=== PATIENT | female | born 1980 | race Caucasian/White ===

== ENCOUNTER 2023-08-23 10:03 | Outpatient (OUT) | payer OTHER, SELFPAY ==
[2023-08-23 10:15] LABS: Basophils Absolute Auto 0.1 10^3/uL (0.0-0.1); Basophils Percent Auto 1.9 % (0.2-2.0); Eosinophils Absolute Auto 0.2 10^3/uL (0.0-0.7); Hematocrit 33.6 % (36.0-48.0); Immature Granulocytes Abs Auto 0.01 10^3/uL (0.00-0.03); Immature Granulocytes Pct Auto 0.1 % (0.0-0.5); Lymphocytes Absolute Auto 3.5 10^3/uL (1.2-3.8); Lymphocytes Percent Auto 49.8 % (20.5-60.0); Mean Corpuscular HGB Conc 29.8 g/dL (29.9-35.2); Mean Corpuscular Hemoglobin 20.4 pg (26.7-34.0); Mean Corpuscular Volume 68.6 fL (81.0-99.0); Mean Platelet Volume 9.3 fL (9.5-13.5); Monocytes Absolute Auto 0.6 10^3/uL (0.3-0.8); Monocytes Percent Auto 8.3 % (1.7-12.0); Neutrophils Absolute Auto 2.6 10^3/uL (1.4-6.5); Neutrophils Percent Auto 36.9 % (43.0-75.0); Platelet Count 372 10^3/uL (150-450); Red Cell Distribution Width 19.3 % (11.0-15.0)
[2023-08-23 11:27] LABS: Estimated Average Glucose 108 mg/dL; Glycohemoglobin A1C 5.4 % (4.5-6.2)
[2023-08-23 11:53] LABS: Alanine Aminotransferase 23 U/L (14-59); Albumin Globulin Ratio 0.9; Albumin Level 3.4 g/dL (3.4-5.0); Alkaline Phosphatase 78 U/L (46-116); Anion Gap 10.5; Aspartate Amino Transferase 20 U/L (15-37); BUN Creatinine Ratio 15.8; Bilirubin Total 0.3 mg/dL (0.2-1.0); Carbon Dioxide 28.8 mmol/L (21.0-32.0); Chloride 103 mmol/L (98-107); Chol HDL Ratio 2.7; Cholesterol 176 mg/dL (<=200); Estimated GFR (African America >60 (>=60); Estimated GFR (Non-African Ame >60 (>=60); Free T3 2.27 pg/mL (2.18-3.98); Globulin 3.9 g/dL; Glucose 75 mg/dL (74-106); HDL Cholesterol 65 mg/dL (40-60); Potassium 3.3 mmol/L (3.5-5.1); Sodium 139 mmol/L (136-145); Thyroid Stimulating Hormone 3.593 uIU/mL (0.358-3.740); Total Protein 7.3 g/dL (6.4-8.2); Triglycerides 51 mg/dL (<=150); VLDL CHOLESTEROL 10.2 mg/dL
[2023-08-24 15:09] LABS: Insulin 2.7 uIU/mL (2.6-24.9)
== END 2023-08-23 10:04 | disposition home or self-care (01) ==
LOC: LAB 10:03
PROVIDERS: PCP Nurse Practitioner Family; Visit Provider Nurse Practitioner Family
DX: Z00.00 Encounter for general adult medical examination without abnormal findings (principal)
CPT/HCPCS: 36415; 80053; 80061; 82306; 83036; 83525; 83540; 84436; 84443; 84481; 85025

== ENCOUNTER 2025-07-31 13:55 | Outpatient (RCR) | payer OTHER, SELFPAY ==
--- OUTSIDE RECORDS SUMMARY | 2015-05-04 03:45 | XMS_ITS | Continuity of Care Document ---
Author Organization [facility] Address [address] [facility] [address] [place] [address] Phone Care Team Providers Care Agricultural Service Worker Name Role Phone Hesham Grossman MD Unavailable Unavailable Procedures Procedure Date LAP GASTRIC BYPASS/DARRIAN-EN-Y LAPAROSCOPIC CHOLECYSTECTOMY Gastric Bypass Laparoscopic Cholecystectomy OFFICE/OUTPATIENT VISIT, [facility] OFFICE CONSULTATION Advance Directives Directive Yes / No Effective Date File Name No Information Encounters Encounter Description Practice Location Reason(s) For Visit Diagnoses Date Provider Providers Copied on Encounter [facility] [employer] [facility], [address] [place] [address], [place], [place], [id number], [place] tel:[phone] [facility] IP No Information 5 Ngoc Dahl. [address] [place] [address], [id number], [place]. tel:[phone] Referring Provider: Hesham Eli, [address] [place] [address] 222, [place], [address] . tel:[phone] [facility], [address] [place] [address] B, [place], [place], [id number], [place] tel:[phone] [facility] IP No Information 5 No Information OFFICE/OUTPATI ENT VISIT, EST [employer] [employer] [facility], [address] [place] [address] B, [place], [place], [id number], [place] tel:[phone] [facility] No Information 5 Ngoc Dahl. [address] [facility] [address], [place], [place], [id number], [place]. tel:[phone] Referring Provider: Hesham Eli, [address] [place] [address], [place], [address] . tel:[phone] OFFICE CONSULTATION [facility], [address] [place] [address] [address], [place], [place], [id number], tel:[phone] [facility] No Information 4 Ngoc Dahl. [address] [facility] [address], [place], [place], [id number], [place]. tel:[phone] Referring Provider: Hesham Eli, [address] [place] [address], [place], [address] . tel:[phone] Family History Family Member Type Diagnosis Age At Onset No Information Payers Payer name Insurance type Covered democrat ID Steffen randle(s) Lonnie CI [id number] [place] [employer] CI [id number] Social History Type Description Quantity Date Captured Comments Sex Female Smoking Status No Information Chief Complaint And Reason For Visit No Information Reason For Referral Reason For Referral No Information History Of Present Illness Encounter Date Complaint History Of Prese nt Illness No Information Functional Status Date Functional Assessmen t No Information Instructions Date Instruction Additional Infor mation No Information Assessments Type Assessment Date No Information Patient Care Teams Name Effective Dates (start - stop) Status Members No Information
[2025-07-30] VITALS (11 sets, daily range): BP systolic 105–145; BP diastolic 53–82; PULSE 60–83; TEMP 36.6–36.9; O2SAT 97–100
--- OUTSIDE RECORDS SUMMARY | 2025-07-30 09:33 | XMS_ITS | Clinical Summary ---
Author Organization [facility] Address [address] [facility], [address] [place] [address] Care Team Providers Care Computer Lab Para Professional Name Role Phone Unavailable Primary Care Provider Unavailabl e Allergies No known active allergies Medications ondansetron (ZOFRAN) 4 MG tablet Take 1 tablet by mouth every 8 hours as needed for Nausea 10 tablet 03/19/2021 Active Social History Tobacco Use Types Packs/Day Years Used Date Smoking Tobacco: Every Day Cigarettes Smokeless Tobacco: Never Alcohol Use Standard Drinks/Week Comments Yes 0 (1 standard drink = 0.6 oz pur e alcohol) socially Comments No Sex and Gender Information Value Date Recorded Sex Assigned at Not on file Legal Sex Female 5:02 PM EST Gender Identity Not on file Sexual Orientation Not on file Last Filed Vital Signs Vital Sign Reading Time Taken Comments Blood Pressure 134/86 03/19/2021 7:08 PM EDT Pulse 95 03/19/2021 7:08 PM EDT Temperature 38.9 C (102 F) 03/19/2021 7:08 PM EDT Respiratory Rate 18 03/19/2021 7:08 PM EDT Oxygen Saturation 98% 03/19/2021 7:08 PM EDT Inhaled Oxygen Concentration - - Weight 56.7 kg (125 lb) 03/19/2021 7:08 PM EDT Height 165.1 cm (5' 5 ) 03/19/2021 7:08 PM EDT Body Mass Index 20.8 03/19/2021 7:08 PM EDT Plan of Treatment Not on file Insurance [place]
--- OUTSIDE RECORDS SUMMARY | 2025-07-30 09:33 | XMS_ITS | Clinical Summary ---
Author Organization [facility] Address [facility] [id number] [address] [place] [address] Care Team Providers Care Fur Finisher Tailor Name Role Phone Giuseppe Sarah Beth Jo CHIEF NURSING OFFICER-MAJOR GIFTS MANAGER Primary Care Provider Allergies No known active allergies Medications lisdexamfetamin e (VYVANSE) 70 mg capsule Take 20 mg by mouth in the morning and at bedtime. Active levothyroxine sodium (LEVOTHYROXINE ORAL) Take 25 mcg by mouth. Active cyanocobalamin (VITAMIN B-12) 1,000 mcg/mL injection Inject 1 mL (1,000 mcg total) into the appropriate muscle every 30 (thirty) days. 1 mL 0 Active potassium chloride (KLOR-CON M 10) 10 MEQ CR tabletIndicatio ns:Hypokalemia TAKE 3 TABLETS(30 MEQ) BY MOUTH DAILY 90 tablet 1 2 Active Additional Information Patient not taking.Reported on 03/15/2023 Active Problems Problem Noted Date Diagnosed Date Syncope 03/03/2023 Kidney stone 11/21/2020 Hypokalemia 10/02/2020 Iron deficiency anemia 10/01/2020 H/O gastric bypass 10/01/2020 B12 deficiency 10/01/2020 Pyelonephritis 09/26/2020 Social History Tobacco Use Types Packs/Day Years Used Date Smoking Tobacco: Every Day Cigarettes 0.5 20 Smokeless Tobacco: Former Tobacco Cessation:Ready to Q uit: No; Counseling Given: No Comments: Monika tried Alcohol Use Standard Drinks/Week Comments Not Currently 0 (1 standard drink = 0.6 oz pure alcohol) occasional, less than once monthly Childcare Answer Date Recorded Childcare Unknown 04/30/2019 Employment Answer Date Recorded Employment Unknown 04/30/2019 Hunger Screening Answer Date Recorded Within the past 12 months we worried whether our food would run out before we got money to buy more. Never True 03/15/2023 Within the past 12 months th e food we bought just didn't last and we didn't have money to get more. Never True 03/15/2023 Purpose - Life Answer Date Recorded Purpose and direction in life Unknown Comments No Sex and Gender Information Value Date Recorded Sex Assigned at Not on file Legal Sex Female 11:27 AM EDT Gender Identity Not on file Sexual Orientation Not on file Last Filed Vital Signs Vital Sign Reading Time Taken Comments Blood Pressure 116/63 03/15/2023 11:06 AM EDT Pulse 69 03/15/2023 11:06 AM EDT Temperature 36.8 C (98.3 F) 03/15/2023 11:06 AM EDT Respiratory Rate 16 03/15/2023 11:06 AM EDT Oxygen Saturation 100% 03/15/2023 11:06 AM EDT Inhaled Oxygen Concentration - - Weight 62.1 kg (137 lb) 03/15/2023 8:46 AM EDT Height 165.1 cm (5' 5 ) 03/15/2023 8:46 AM EDT Body Mass Index 22.8 03/15/2023 8:46 AM EDT Plan of Treatment Health Maintenance Due Date Last Done Comments Depression Screening 1990 Tobacco Screening 1990 Pap Smear 1999 DTaP,Tdap and Td Vaccines (2 - Td or Tdap) 07/07/2021 07/07/2011 Adult BMI Screening 03/15/2024 03/15/2023 Influenza Vaccine 07/20/2025 Medical Devices Not on file Insurance MEDICAID [facility] MEDICAID Advance Directives * Full Code (Latest Code Status on File) Date Activated Date Inactivated Comments 03/03/2023 6:36 PM 03/04/2023 1:53 AM * Full Code Date Activated Date Inactivated Comments 09/26/2020 8:58 PM 09/29/2020 5:00 PM Care Teams Fur Finisher Tailor Relationship Specialty Start Date End Date Sarah Beth Chin, CHIEF NURSING OFFICER-MAJOR GIFTS MANAGER [address] [place] [address] PCP - General Family Medicine 08/30/21
--- OUTSIDE RECORDS SUMMARY | 2025-07-30 09:33 | XMS_ITS | Encounter Summary ---
Author Organization [facility] Address [facility] [id number] [address] [place] [address] Care Team Providers Care Water Pollution Scientist Name Role Phone Giuseppe Sarah Beth Jo CARGO TRIMMER-HAND TWISTER Primary Care Provider Encounter Details Date Type Department Care Team (Late st Contact Info) Description 08/28/2023 Telephone [facility] - Medical On[facility] [address] [place] [address] Brittani Chirinos Social History Tobacco Use Types Packs/Day Years Used Date Smoking Tobacco: Every Day Cigarettes 0.5 20 Smokeless Tobacco: Former Comments: Monika tried Alcohol Use Standard Drinks/Week [...] on file Sexual Orientation Not on file documented as of this encounter Plan of Treatment Not on file documented as of this encounter Visit Diagnoses Not on filedocumented in this encounter Care Teams Water Pollution Scientist Relationship Specialty Start Date End Date Sarah Beth Chin APRN-ASHISH [address] [facility], [place] [address] PCP - General Family Medicine 08/30/21 documented as of this encounter
--- OUTSIDE RECORDS SUMMARY | 2025-07-30 09:33 | XMS_ITS | Clinical Summary ---
Author Organization [facility] Address [address] [place] [address] Care Team Providers Care Quality Control Head Name Role Phone Unavailable Primary Care Provider Unavailabl e Social History Tobacco Use Types Packs/Day Years Used Date Smoking Tobacco: Never Assessed [place] Safety & Environment Answer Date Rec orded Fear of Current or Ex-Partner Not on file Emotionally Abused Not on file 01/10/2024 Physically Abused Not on file 01/10/2024 Sexually Abused Not on file 01/10/2024 Physically or Sexually Abused Not on file Comments Unknown Sex and Gender Information Value Date Recorded Sex Assigned at Not on file Legal Sex Female 9:43 PM EDT Gender Identity Not on file Sexual Orientation Not on file Plan of Treatment Not on file
[2025-07-30 10:01] LABS: Hematocrit 24.0 % (36.0-48.0); Mean Corpuscular HGB Conc 25.8 g/dL (29.9-35.2); Mean Corpuscular Hemoglobin 15.4 pg (26.7-34.0); Mean Corpuscular Volume 59.6 fL (81.0-99.0); Platelet Count 269 10^3/uL (150-450); Red Blood Count 4.03 10^6/uL (4.20-5.40); White Blood Count 6.6 10^3/uL (4.0-11.0)
[2025-07-30 10:09] LABS: Hemoglobin 6.2 g/dL (12.0-16.0)
[2025-07-30 11:44] LABS: Anisocytosis 2+; Basophils Abs Manual 0.00 10^3/uL (0.00-0.10); Basophils Percent Manual 0.0 % (0.2-2.0); Eosinophils Absolute Manual 0.06 10^3/uL (0.00-0.70); Eosinophils Percent Manual 1.0 % (0.9-7.0); Hypochromasia 2+; Lymphocytes Absolute Manual 2.31 10^3/uL (1.20-3.80); Lymphocytes Percent Manual 35.0 % (20.5-60.0); Microcytosis 2+; Monocytes Absolute Manual 0.46 10^3/uL (0.30-0.80); Monocytes Percent Manual 7.0 % (1.7-12.0); Segmented Neut Absolute Manual 3.76 10^3/uL (1.4-6.5); Segmented Neutrophils % Manual 57.0 (43.0-75.0)
[2025-07-30 11:49] LABS: Iron 10.0 ug/dL (50.0-170.0)
[2025-07-30 12:02] LABS: Alanine Aminotransferase 33 U/L (14-59); Albumin Globulin Ratio 0.8; Albumin Level 3.6 g/dL (3.4-5.0); Alkaline Phosphatase 91 U/L (46-116); Anion Gap 14.2; Aspartate Amino Transferase 28 U/L (15-37); Blood Urea Nitrogen 10.0 mg/dL (7.0-18.0); Calcium 8.7 mg/dL (8.5-10.1); Carbon Dioxide 26.0 mmol/L (21.0-32.0); Chloride 104 mmol/L (98-107); Cholesterol 204 mg/dL (<=200); Estimated GFR (African America >60 (>=60 mL/min/1.73m^2); Estimated GFR (Non-African Ame >60 (>=60 mL/min/1.73m^2); Free T3 2.17 pg/mL (2.18-3.98); Globulin 4.4 g/dL; Glucose 94 mg/dL (74-106); HDL Cholesterol 66 mg/dL (40-60); Potassium 4.2 mmol/L (3.5-5.1); Sodium 140 mmol/L (136-145); Thyroid Stimulating Hormone 4.290 uIU/mL (0.358-3.740); Total Protein 8.0 g/dL (6.4-8.2); Triglycerides 85 mg/dL (<=150); VLDL CHOLESTEROL 17.0 mg/dL
[2025-07-30] MEDS: ACETAMINOPHEN 325 MG TABLET 650 MG PO (13:49)
--- NOTE | 2025-07-30 13:59 | PC.NURSE ---
1350: Pt. taken to room 201 on med/surg. for PRBC transfusions. Report to ELIAS Tiwari.
[2025-07-30] MEDS: 0.9 % SODIUM CHLORIDE 250 ML 30 ML IV (14:54)
[2025-07-30] MEDS: DIPHENHYDRAMINE HCL 25 MG CAPSULE PO (14:54)
[2025-07-31 14:01] VITALS: BP 123/79; PULSE 69; TEMP 37; O2SAT 99
[2025-07-31] MEDS: IRON SUCROSE COMPLEX 300 MG in 0.9 % SODIUM CHLORIDE 250 ML 176.667 MG IV (14:21)
[2025-07-31 14:29] LABS: Hematocrit 30.5 % (36.0-48.0); Hemoglobin 8.5 g/dL (12.0-16.0); Immature Granulocytes Abs Auto 0.04 10^3/uL (0.00-0.03); Immature Granulocytes Pct Auto 0.6 % (0.0-0.5); Lymphocytes Absolute Auto 2.4 10^3/uL (1.2-3.8); Mean Corpuscular HGB Conc 27.9 g/dL (29.9-35.2); Mean Corpuscular Hemoglobin 17.9 pg (26.7-34.0); Mean Corpuscular Volume 64.1 fL (81.0-99.0); Platelet Count 298 10^3/uL (150-450); Red Blood Count 4.76 10^6/uL (4.20-5.40); White Blood Count 6.4 10^3/uL (4.0-11.0)
== END 2025-08-19 08:08 | disposition home or self-care (01) ==
LOC: LAB 13:55
PROVIDERS: PCP Nurse Practitioner Family; Visit Provider Nurse Practitioner Family
DX: Z51.81 Encounter for therapeutic drug level monitoring (principal); D64.9 Anemia, unspecified
CPT/HCPCS: 36415; 36430; 80053; 80061; 82306; 83036; 83525; 83540; 84436; 84443; 84481; 85007; 85025; 85027; 86850; 86900; 86901; 86923; J1756; P9016; P9038